=== PATIENT | female | born 1960 | race Caucasian/White ===

== ENCOUNTER 2016-06-04 10:21 | Day surgery (SDC) | payer MEDICAID ==
[2016-06-04] MEDS ORDERED: LACTATED RINGERS 1,000 ML IV ONE (10:48)
[2016-06-04] MEDS ORDERED: MIDAZOLAM 2 MG/2 ML VIAL IVP ONE (11:20)
[2016-06-04] MEDS ORDERED: fentaNYL 250 MCG/5 ML VIAL IVP ONE (11:20)
== END 2016-06-04 10:22 | disposition home or self-care (01) ==
PROC: 0DJD8ZZ Inspection of Lower Intestinal Tract, Via Natural or Artificial Opening Endoscopic (ICD-10-PCS; principal; 2016-06-04 11:15)
DX: R19.5 Other fecal abnormalities (principal); Q27.33 Arteriovenous malformation of digestive system vessel; Z80.3 Family history of malignant neoplasm of breast; Z83.3 Family history of diabetes mellitus
CPT/HCPCS: 45378; J3010; J7120

== ENCOUNTER 2017-05-11 08:45 | Outpatient (CLI) | payer MEDICAID ==
--- NOTE | 2017-05-12 17:30 | Mammography Report ---
DATE OF SERVICE: 05/11/2017 DIGITAL SCREENING MAMMOGRAM: 05/11/2017 CLINICAL INDICATION: A 57-year-old nulliparous patient with family history of breast cancer, for screening. COMPARISON: 01/2016, 07/2011, 06/2010, 07/2007. TECHNIQUE: Routine CC and MLO projections were obtained of the breasts. Bilateral laterally exaggerated craniocaudal views. FINDINGS: The breasts again demonstrate heterogeneously dense fibroglandular parenchyma bilaterally. Coarse and punctate, typically benign calcifications are present. No suspicious masses, clustered microcalcifications, or regions of architectural distortion are identified. IMPRESSION: BENIGN FINDINGS. RECOMMENDATION: ROUTINE ANNUAL SCREENING UNLESS OTHERWISE CLINICALLY INDICATED. BIRADS CATEGORY 2-BENIGN FINDINGS. STANDARD QUALIFYING STATEMENTS: 1. This examination was reviewed with the aid of Computer-Aided Detection (CAD). 2. A negative or benign imaging report should not delay biopsy if clinically suspicious findings are present. Consider surgical consultation if warranted. More than 5% of cancers are not identified by imaging. 3. Dense breasts may obscure an underlying neoplasm. TD: 05/12/2017 18:29
== END 2017-05-11 08:46 | disposition home or self-care (01) ==
LOC: DI.S 08:45
PROVIDERS: ATTEND Nurse Practitioner Family
DX: Z12.31 Encounter for screening mammogram for malignant neoplasm of breast (principal); Z80.3 Family history of malignant neoplasm of breast
CPT/HCPCS: 77067

== ENCOUNTER 2018-04-30 23:27 | Outpatient (CLI) | payer SELFPAY | END 2018-04-30 23:28 | disposition EMS.NT | LOC: EMS 23:27 | PROVIDERS: ATTEND Surgery | DX: R11.10 Vomiting, unspecified (principal) ==

== ENCOUNTER 2019-10-25 18:44 | Emergency (ER) | payer MEDICAID ==
[2019-10-25 19:03] VITALS: BP 126/74
--- NOTE | 2019-10-25 19:24 | ED Physician Documentation ---
PD HPI OPHTHO - Stated complaint Stated Complaint: BILAT EYE PX/PLANT - Chief complaint Chief Complaint: Heent - History obtained from History obtained from: Patient - History of Present Illness Timing - onset: Enter time (16:30) Timing - details: Abrupt onset Pain level max: 10 Pain level now: 3 Location: Both Quality / character: Burning Associated symptoms: Redness Contributing factors: Other (exposure to toxic plant (see below)) - Additional information Additional information: patient was gardening this afternoon which included cutting a euphorbia plant; patient noted the sap coming from this plant had gotten on her clothing and hands. She finished gardening approximately 4:30 PM. At approximately that time, she believes the sap got from her hands into both eyes, and by 5:30 PM, she had severe bilateral eye pain and visual changes in both eyes (blurry, then "blindness" (per patient)). While awaiting ED evaluation, her vision has returned to baseline and the pain has attenuated, now has mild bilateral eye burning. She says she flushed the eyes with water twice BREAKER OFF Review of Systems Eyes: reports: Loss of vision, Irritation. denies: Photophobia, Discharge GI: denies: Nausea, Vomiting Skin: denies: Rash PD PAST MEDICAL HISTORY - Past Medical History Cardiovascular: None Respiratory: None Endocrine/Autoimmune: None HEENT: None Psych: None Musculoskeletal: Other Derm: None - Past Surgical History Past Surgical History: Yes Ortho: Carpal Tunnel surgery HEENT: Tonsil/Adenoidectomy - Allergies Allergies/Adverse Reactions: Allergies Allergy/AdvReac Type Severity Reaction Status Date / Time No Known Drug Allergies Allergy Verified 05/27/15 22:06 - Social History Does the pt smoke?: No Smoking Status: Never smoker Does the pt have substance abuse?: No PD ED PE NORMAL - Vitals Vital signs reviewed: Yes - General General: Alert and oriented X 3, No acute distress, Well developed/nourished - HEENT HEENT: PERRL, EOMI PD ED PE EXPANDED - Eyes Eyes: PERRL, Normal accommodation, EOMI, Injected conj/sclera (mild bilateral injection of conjunctiva), Normal corneas, Other (left eye pH = 7.0 (using pH paper; left eye not tested, as both eyes were exposed to same substance and symptoms are equal (L=R))). No: Corneal abrasion, Fluorescein uptake Results - Vitals Vitals: Vital Signs - 24 hr 10/25/19 19:00 Temperature 36.4 C L Heart Rate 62 Respiratory 18 Rate Blood Pressure 126/74 O2 Saturation 99 Oxygen O2 Source Room air PD MEDICAL DECISION MAKING - ED course Complexity details: considered differential, d/w patient ED course: neutral pH of tears left eye. both eyes instilled with proparacaine (after pH testing) and fluorescein instilled bilaterally, no corneal uptake in either eye (using bedside wood's lamp). Offered analgesia (PO), but declines, will take ibuprofen or tylenol when she gets home. Departure - Departure Disposition: 01 Home, Self Care Clinical Impression: Chemical exposure of eye Condition: Good Instructions: ED Chemical Conjunctivitis Discharge Date/Time: 10/25/19 20:12
[2019-10-25] MEDS ORDERED: PROPARACAINE 0.5% OPHTH DROPS 15 ML EACHEYE STA (19:40)
== END 2019-10-25 20:12 | disposition home or self-care (01) ==
LOC: ED 18:44
DX: Z77.098 Contact with and (suspected) exposure to other hazardous, chiefly nonmedicinal, chemicals (principal)
CPT/HCPCS: 99282; 99283; J3490

== ENCOUNTER 2020-07-11 08:00 | Outpatient (CLI) | payer MEDICAID ==
--- NOTE | 2020-07-11 21:49 | XRAY Report ---
PROCEDURE: Chest 2 View X-Ray INDICATIONS: PAIN PROVOKED BY BREATHING TECHNIQUE: 2 view(s) of the chest. COMPARISON: None. FINDINGS: Surgical changes and devices: None. Lungs and pleura: No pleural effusions or pneumothorax. Lungs are clear. Question 1 cm pulmonary n odule seen anteriorly on the lateral view. This is not definite. Mediastinum: Mediastinal contours are normal. Heart size is normal. Bones and chest wall: No suspicious bony abnormalities. Soft tissues appear unremarkable. IMPRESSION: 1. No evidence of acute pulmonary process. 2. Question 1 cm pulmonary nodule seen on lateral view. Comment: Recommend noncontrast chest CT to evaluate possible presence or absence of a centimeter pulm onary nodule. Reviewed by: Donaldo Alcocer MD on 07/11/2020 9:48 PM PDT Approved by: Donaldo Alcocer MD on 07/11/2020 9:48 PM PDT Station ID: [id number]
== END 2020-07-11 23:59 | disposition home or self-care (01) ==
LOC: DI.S 08:00
PROVIDERS: ATTEND Physician Assistant Medical
DX: R07.1 Chest pain on breathing (principal)

== ENCOUNTER 2020-07-17 08:12 | Outpatient (CLI) | payer MEDICAID ==
--- NOTE | 2020-07-17 09:11 | CT Report ---
PROCEDURE: CHEST WO INDICATIONS: PULMONARY NODULE TECHNIQUE: Noncontrast 5 mm thick sections acquired from the pulmonary apices to the posterior costophrenic angl es. 7 mm thick coronal and sagittal MIP reformats were then acquired. For radiation dose reduction, the following was used: automated exposure control, adjustment of mA and/or kV according to patient size. COMPARISON: X-ray, two-view, 07/11/2020. FINDINGS: Image quality: Excellent. Lungs and pleura: A 7 mm thick related nodule is seen in the posterior segment of the right upper lo be (series 4 image 119). There is a 6 mm thick related nodule in the left lower lobe along the major fissure (series 4 image 178). No acute air space opacities. No pleural effusions or pneumothorax. Central and peripheral airways are patent and normal in caliber. Mediastinum: Heart size is normal. No pericardial effusion. No mediastinal adenopathy by size crit eria. Thoracic aorta and central pulmonary arteries are normal in size. Esophagus is normal in nirmal jesika. No hiatal hernia. Bones and chest wall: No suspicious bony lesions. No vertebral body compression fractures. No axil ike or supraclavicular adenopathy by size criteria. The thyroid is normal in size. Abdomen: Visualized upper abdominal solid organs and bowel loops appear normal in the absence of con trast. IMPRESSION: 1. A couple of 6-7 mm spiculated nodules, one in the posterior segment of the right upper lobe and on e in the left lower lobe. Differential diagnoses include infection, inflammatory nodules and neoplasm . A short-term follow-up CT is recommended 3 months. Alternatively, PET/CT may be considered. 2. No mediastinal lymphadenopathy. Reviewed by: Pablo Gil MD on 07/17/2020 8:09 AM [facility] Approved by: Pablo Gil MD on 07/17/2020 8:09 AM [facility] Station ID: [id number]
== END 2020-07-17 08:13 | disposition home or self-care (01) ==
LOC: DI 08:12
PROVIDERS: ATTEND Physician Assistant Medical
DX: R91.8 Other nonspecific abnormal finding of lung field (principal)

== ENCOUNTER 2020-08-19 08:00 | Outpatient (CLI) | payer MEDICAID ==
[2020-08-20 21:27] LABS: CHLAMYDIA TRACHOMATIS DNA NEGATIVE (NEGATIVE); NEISSERIA GONORRHOEAE DNA NEGATIVE (NEGATIVE); TRICHOMONAS VAGINALIS DNA NEGATIVE (NEGATIVE)
== END 2020-08-19 23:59 | disposition home or self-care (01) ==
LOC: LAB.R 08:00
PROVIDERS: ATTEND Obstetrics & Gynecology
DX: Z11.3 Encounter for screening for infections with a predominantly sexual mode of transmission (principal)
CPT/HCPCS: 87491; 87591; 87661

== ENCOUNTER 2020-10-07 09:12 | Outpatient (CLI) | payer MEDICAID ==
[2020-10-07 14:45] LABS: EOSINOPHILS # (AUTO) 0.1 10^3/uL (0.0-0.7); EOSINOPHILS % (AUTO) 2.7 %; HCT - HEMATOCRIT 41.9 % (37.0-47.0); HGB - HEMOGLOBIN 13.3 g/dL (12.0-16.0); LYMPHOCYTES # (AUTO) 1.6 10^3/uL (1.5-3.5); LYMPHOCYTES % (AUTO) 38.9 %; MEAN CORPUSCULAR HEMOGLOBIN 29.9 pg (27.0-31.0); MEAN CORPUSCULAR HGB CONC 31.7 g/dL (32.0-36.0); MEAN CORPUSCULAR VOLUME 94.2 fL (81.0-99.0); MEAN PLATELET VOLUME 12.5 fL (7.9-10.8); MONOCYTES # (AUTO) 0.3 10^3/uL (0.0-1.0); MONOCYTES % (AUTO) 7.6 %; NEUTROPHILS % (AUTO) 49.6 %; PLT - PLATELET COUNT 183 10^3/uL (130-450); RED BLOOD COUNT 4.45 10^6/uL (4.20-5.40); RED CELL DISTRIBUTION WIDTH 12.9 % (12.0-15.0); WHITE BLOOD COUNT 4.1 x10^3/uL (4.8-10.8)
[2020-10-07 15:34] LABS: ALBUMIN 4.3 g/dL (3.2-5.5); ALBUMIN/GLOBULIN RATIO 1.4 (1.0-2.2); BILIRUBIN,TOTAL 0.8 mg/dL (0.2-1.0); CALCIUM 9.6 mg/dL (8.5-10.3); CREATININE 0.8 mg/dL (0.4-1.0); POTASSIUM 4.2 mmol/L (3.5-5.0); TOTAL PROTEIN 7.4 g/dL (6.7-8.2)
== END 2020-10-07 09:13 | disposition home or self-care (01) ==
LOC: LAB.S 09:12
PROVIDERS: ATTEND Obstetrics & Gynecology
DX: R91.8 Other nonspecific abnormal finding of lung field (principal); Z13.21 Encounter for screening for nutritional disorder
CPT/HCPCS: 36415; 80053; 82306; 85025

== ENCOUNTER 2021-03-16 02:36 | Outpatient (CLI) | payer MEDICAID | END 2021-03-16 02:37 | disposition critical access hospital (66) | LOC: EMS 02:36 | DX: R55 Syncope and collapse (principal); R11.10 Vomiting, unspecified | CPT/HCPCS: A0425; A0429; A0999 ==

== ENCOUNTER 2021-03-16 03:07 | Emergency (ER) | payer MEDICAID ==
[2021-03-16 03:50] VITALS: BP 110/64
--- NOTE | 2021-03-16 03:51 | ED Physician Documentation ---
History of Present Illness - Stated complaint Stated Complaint: SYNCOPE, HBD - Chief complaint Chief Complaint: General - History obtained from History obtained from: Patient, EMS - History of Present Illness Timing: Today - Additonal information Additional information: 61-year-old female who drinks infrequently had a lot of beer to drink tonight and she had passed out, vomited and was unarousable. 911 was called. In route to the hospital the patient was incoherent did not know where she was. She has been in the emergency department now for about 30 minutes and is wanting to go home. She indicates that she believes she has just had too much to drink. She has a friend who lives in [place] who could pick her up and take her home. The patient states that she has not been ill recently she has not had diarrhea or vomiting with the exception of the vomiting this evening. Review of Systems Constitutional: denies: Fever Eyes: denies: Decreased vision Ears: denies: Ear pain Nose: denies: Congestion Throat: denies: Sore throat Cardiac: denies: Chest pain / pressure Respiratory: denies: Dyspnea, Cough GI: reports: Nausea, Vomiting. denies: Abdominal Pain, Diarrhea : denies: Dysuria, Frequency Skin: denies: Rash Musculoskeletal: denies: Neck pain, Back pain, Extremity pain Neurologic: reports: Near syncope, Confused, Altered mental status. denies: Generalized weakness, Focal weakness, Numbness PD PAST MEDICAL HISTORY - Past Medical History Cardiovascular: None Respiratory: None Neuro: None Endocrine/Autoimmune: None GI: None RN RENAL: None : None HEENT: None Psych: None Musculoskeletal: Other Derm: None - Past Surgical History Past Surgical History: Yes Ortho: Carpal Tunnel surgery HEENT: Tonsil/Adenoidectomy - Allergies Allergies/Adverse Reactions: Allergies Allergy/AdvReac Type Severity Reaction Status Date / Time No Known Drug Allergies Allergy Verified 05/27/15 22:06 - Social History Does the pt smoke?: No Smoking Status: Never smoker Does the pt drink ETOH?: Yes Does the pt have substance abuse?: No - Immunizations Immunizations are current?: No Immunizations: TDAP >10years/unknown - POLST Patient has POLST: No PD ED PE NORMAL - Vitals Vital signs reviewed: Yes (Hypertensive) - General General: Alert and oriented X 3, No acute distress, Well developed/nourished, Other (Appears mildly anxious.) - HEENT HEENT: Atraumatic, PERRL, EOMI - Neck Neck: Supple, no meningeal sign, No bony TTP - Cardiac Cardiac: RRR, No murmur - Respiratory Respiratory: No respiratory distress, Clear bilaterally - Abdomen Abdomen: Normal bowel sounds, Soft, Non tender, Non distended, No organomegaly - Back Back: No CVA TTP, No spinal TTP - Derm Derm: Normal color, Warm and dry, No rash - Extremities Extremities: No deformity, No edema - Neuro Neuro: Alert and oriented X 3, 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, No motor deficit, No sensory deficit, Normal speech Eye Opening: Spontaneous Motor: Obeys Commands Verbal: Oriented GCS Score: 15 - Psych Psych: Normal mood, Normal affect Results - Vitals Vitals: Vital Signs - 24 hr 03/16/21 03/16/21 03/16/21 03:16 03:48 04:53 Temperature 35.9 C L Heart Rate 67 58 L 58 L Respiratory 23 13 13 Rate Blood Pressure 145/96 H 110/64 110/64 O2 Saturation 98 100 100 Oxygen O2 Source Room air - Labs Labs: Laboratory Tests 03/16/21 03/16/21 04:05 04:05 WBC 5.2 RBC 4.36 Hgb 13.3 Hct 39.2 MCV 89.9 MCH 30.5 MCHC 33.9 RDW 12.1 Plt Count 175 MPV 10.6 Neut # (Auto) 3.1 Lymph # (Auto) 1.5 Waller # (Auto) 0.4 Eos # (Auto) 0.1 Baso # (Auto) 0.1 Absolute Nucleated RBC 0.00 Nucleated RBC % 0.0 Sodium 141 Potassium 3.5 Chloride 104 Carbon Dioxide 23 Anion Gap 14.0 H BUN 15 Creatinine 0.6 Estimated GFR (MDRD) 102 Glucose 105 H Calcium 9.1 Total Bilirubin 0.8 AST 21 ALT 19 Alkaline Phosphatase 63 Total Protein 7.4 Albumin 4.1 Globulin 3.3 Albumin/Globulin Ratio 1.2 Lipase 69 H Ethyl Alcohol 160.9 PD MEDICAL DECISION MAKING - ED course Complexity details: considered differential, d/w patient ED course: 61-year-old female intoxicated presents to the emergency department confused and she has improvement in her level of confusion and wants to go home. She has a friend who lives nearby and could give her a ride down to [place]. The patient indicates that she would then be at home alone. I have asked the patient to stay in the emergency department for further evaluation including a blood draw of her blood alcohol level. I have indicated that if her blood alcohol is over 250 we will need to keep her here for a period of time. Departure - Departure Disposition: Home, Self Care Clinical Impression: Alcohol intoxication Qualifiers: Complication of substance-induced condition: with delirium Qualified Code(s): F10.921 - Alcohol use, unspecified with intoxication delirium Condition: Stable Instructions: ED Alcohol Intoxication Follow-Up: Mike Navarrete MD [Primary Care Provider] - Discharge Date/Time: 03/16/21 04:56
[2021-03-16 04:11] LABS: BASOPHILS # (AUTO) 0.1 10^3/uL (0.0-0.1); BASOPHILS % (AUTO) 1.2 %; EOSINOPHILS # (AUTO) 0.1 10^3/uL (0.0-0.7); EOSINOPHILS % (AUTO) 1.9 %; HCT - HEMATOCRIT 39.2 % (37.0-47.0); HGB - HEMOGLOBIN 13.3 g/dL (12.0-16.0); LYMPHOCYTES # (AUTO) 1.5 10^3/uL (1.5-3.5); LYMPHOCYTES % (AUTO) 29.8 %; MEAN CORPUSCULAR HEMOGLOBIN 30.5 pg (27.0-31.0); MEAN CORPUSCULAR HGB CONC 33.9 g/dL (32.0-36.0); MEAN CORPUSCULAR VOLUME 89.9 fL (81.0-99.0); MEAN PLATELET VOLUME 10.6 fL (7.9-10.8); MONOCYTES # (AUTO) 0.4 10^3/uL (0.0-1.0); MONOCYTES % (AUTO) 7.4 %; NEUTROPHILS # (AUTO) 3.1 10^3/uL (1.5-6.6); NEUTROPHILS % (AUTO) 59.5 %; PLT - PLATELET COUNT 175 10^3/uL (130-450); RED BLOOD COUNT 4.36 10^6/uL (4.20-5.40); RED CELL DISTRIBUTION WIDTH 12.1 % (12.0-15.0); WHITE BLOOD COUNT 5.2 x10^3/uL (4.8-10.8)
[2021-03-16 04:23] LABS: ALBUMIN 4.1 g/dL (3.2-5.5); ALBUMIN/GLOBULIN RATIO 1.2 (1.0-2.2); BILIRUBIN,TOTAL 0.8 mg/dL (0.2-1.0); CALCIUM 9.1 mg/dL (8.5-10.3); CREATININE 0.6 mg/dL (0.4-1.0); ETOH - ETHANOL 160.9 mg/dL; POTASSIUM 3.5 mmol/L (3.5-5.0); TOTAL PROTEIN 7.4 g/dL (6.7-8.2)
== END 2021-03-16 04:56 | disposition home or self-care (01) ==
LOC: EDUNIT# → SUPCPDRO 03:07 → ED 03:07
DX: F10.921 Alcohol use, unspecified with intoxication delirium (principal)
CPT/HCPCS: 36415; 80053; 80320; 83690; 85025; 99283

== ENCOUNTER 2021-04-26 10:51 | Outpatient (CLI) | payer MEDICAID ==
--- NOTE | 2021-04-26 12:58 | CT Report ---
PROCEDURE: CHEST WO INDICATIONS: PULMONARY NODULE TECHNIQUE: Noncontrast 1mm axial images were acquired from the pulmonary apices to the posterior costophrenic an gles. Axial 5 mm soft tissue kernel reconstructions were performed as well as 8 mm axial MIP and cor onal and sagittal 5 mm reformations. For radiation dose reduction, the following was used: automate d exposure control, adjustment of mA and/or kV according to patient size. COMPARISON: 07/17/2020 FINDINGS: Image quality: Excellent. Lungs and pleura: No acute air space opacities. No pleural effusions or pneumothorax. Central and peripheral airways are patent and normal in caliber. There is been interval increase in size of spic ulated solid nodule within the right upper lobe (series 4; image 101). This measures 8 x 7 mm on toda y's examination where it previously measured 6 x 6 mm upon my remeasurement. Additional spiculated no dule adjacent to the left major fissure within the left lower lobe is also increased in size from phillip or examination now measuring 12 x 6 mm (4; 166) compared to 8 x 6 mm upon my repeat measurement. No n ew suspicious nodules identified. Mediastinum: Heart size is normal. No pericardial effusion. No mediastinal adenopathy by size crit eria. Thoracic aorta and central pulmonary arteries are normal in size. Esophagus is normal in nirmal jesika. No hiatal hernia. Bones and chest wall: No suspicious bony lesions. No vertebral body compression fractures. No axil ike or supraclavicular adenopathy by size criteria. The thyroid is normal in size and there are no incidental findings. Abdomen: Visualized upper abdominal solid organs and bowel loops appear normal in the absence of con trast. IMPRESSION: Slight interval increase in size of spiculated solid nodules within the right upper and left lower lo bes from comparison examination. This is concerning for malignancy. Recommend confirmation with PET/C T versus tissue sampling. Reviewed by: Onofre Tay DO on 04/26/2021 11:57 AM [facility] Approved by: Onofre Tay DO on 04/26/2021 11:57 AM [facility] Station ID: [id number]
== END 2021-04-26 10:52 | disposition home or self-care (01) ==
LOC: DI 10:51
PROVIDERS: ATTEND Internal Medicine
DX: R91.8 Other nonspecific abnormal finding of lung field (principal)

== ENCOUNTER 2021-05-01 08:00 | Outpatient (CLI) | payer MEDICAID ==
--- NOTE | 2021-05-01 17:00 | XRAY Report ---
PROCEDURE: Lumbar Spine 2 View INDICATIONS: FALL ON/FROM OTHER STAIRS AND STEPS; CONTUSION OF LOWER BACK/PELV TECHNIQUE: 2 views of the lumbar spine were acquired. COMPARISON: None. FINDINGS: Bones: 5 [id number] vertebrae are present. There is normal bony alignment. No vertebral body compression fractures. No suspicious bony lesions. Soft tissues: Overlying bowel gas pattern is normal. No suspicious soft tissue calcifications. IMPRESSION: No acute fracture. No osseous lesion. If symptoms and/or clinical suspicion for patholog y continue, further assessment with repeat plain films, or advanced imaging (e.g., CT, MRI, or bone s can) is recommended for further assessment. Reviewed by: Dixie Bass MD on 05/01/2021 4:59 PM PST Approved by: Dixie Bass MD on 05/01/2021 4:59 PM PST Station ID: [id number]
== END 2021-05-01 23:59 ==
LOC: DI.S 08:00
PROVIDERS: ATTEND Registered Nurse
DX: S30.0XXA Contusion of lower back and pelvis, initial encounter (principal)

== ENCOUNTER 2021-05-26 08:00 | Outpatient (CLI) | payer MEDICAID, OTHER ==
--- NOTE | 2021-05-27 10:14 | XRAY Report ---
PROCEDURE: Thoracic Spine 2 View INDICATIONS: CONTUSION OF BACK WALL OF THORAX TECHNIQUE: 3 views of the thoracic spine were acquired. COMPARISON: None. FINDINGS: Bones: No fractures or dislocations. No suspicious bony lesions. Very mild degenerative endplate ch anges are seen in mid to lower thoracic spine. 12 pairs of ribs are noted, and appear intact where v isualized. Soft tissues: No paravertebral stripe thickening. IMPRESSION: Very mild degenerative disc disease in mid to lower thoracic spine. No acute compression fracture or spondylolisthesis. Reviewed by: Les Blake MD on 05/27/2021 10:13 AM [facility] Approved by: Les Blake MD on 05/27/2021 10:13 AM [facility] Station ID: [id number]
--- NOTE | 2021-05-27 12:41 | XRAY Report ---
PROCEDURE: Cervical Spine 2 View INDICATIONS: CONTUSION OF NECK TECHNIQUE: 4 view(s) of the cervical spine were acquired. COMPARISON: None. FINDINGS: Bones: No fractures or dislocations to the T2 level. The lateral masses of C1 appear intact on the odontoid view. Mild disc height loss with endplate osteophytosis at C5-6. Minimal grade 1 anterolisth esis of C7-T1. Soft tissues: No prevertebral soft tissue swelling. IMPRESSION: No acute osseous anomaly. Reviewed by: Efrem Abdul MD on 05/27/2021 12:[address] [facility] Approved by: Efrem Abdul MD on 05/27/2021 12:[address] [facility] Station ID: [id number]
--- NOTE | 2021-05-27 13:00 | XRAY Report ---
PROCEDURE: Elbow 3 View LT INDICATIONS: LEFT ELBOW PAIN TECHNIQUE: 3 views of the elbow were acquired. COMPARISON: None FINDINGS: Bones: No fractures or dislocations. No suspicious bony lesions. Soft tissues: No elbow joint effusion. No suspicious soft tissue calcifications. IMPRESSION: No acute fracture. No osseous lesion. If symptoms and/or clinical suspicion for pathology continue, f urther assessment with repeat plain films, or advanced imaging (e.g., CT, MRI, or bone scan) is recom mended for further assessment. Reviewed by: Dixie Bass MD on 05/27/2021 12:58 PM PST Approved by: Dixie Bass MD on 05/27/2021 12:58 PM PST Station ID: [id number]
== END 2021-05-26 23:59 | disposition home or self-care (01) ==
LOC: DI.S 08:00
PROVIDERS: ATTEND Physician Assistant Medical
DX: S10.93XD Contusion of unspecified part of neck, subsequent encounter (principal); M25.522 Pain in left elbow; M51.34 Other intervertebral disc degeneration, thoracic region

== ENCOUNTER 2021-10-01 09:03 | Outpatient (CLI) | payer MEDICAID ==
--- NOTE | 2021-10-02 08:41 | CT Report ---
PROCEDURE: CHEST WO INDICATIONS: LUNG NODULE TECHNIQUE: Noncontrast 1mm axial images were acquired from the pulmonary apices to the posterior costophrenic an gles. Axial 5 mm soft tissue kernel reconstructions were performed as well as 8 mm axial MIP and cor onal and sagittal 5 mm reformations. For radiation dose reduction, the following was used: automate d exposure control, adjustment of mA and/or kV according to patient size. COMPARISON: 04/26/2021 FINDINGS: Image quality: Excellent. Lungs and pleura: Previously noted pulmonary nodules are as follows: Nodule 1: A spiculated nodule in the posterior right upper lobe is unchanged in size. On current imag e 113/4 it measures 8 mm. Nodule 2: Interval left lower lobectomy, for a previous 12 x 6 mm left lower lobe pulmonary nodule. There is a moderately large left pleural effusion. No new or increasing pulmonary nodules. Mediastinum: Heart size is normal. No pericardial effusion. No mediastinal adenopathy by size crit eria. Thoracic aorta and central pulmonary arteries are normal in size. Esophagus is normal in nirmal jesika. No hiatal hernia. Bones and chest wall: No suspicious bony lesions. No vertebral body compression fractures. No axil ike or supraclavicular adenopathy by size criteria. Thyroid is grossly unremarkable as visualized. Abdomen: Visualized upper abdominal solid organs and bowel loops appear normal in the absence of con trast. IMPRESSION: 1. Interval left lower lobectomy. There is now a moderately large left pleural effusion. 2. No significant change in size or appearance of a spiculated 8mm right upper lobe pulmonary nodule. The appearance is suspicious for a bronchogenic carcinoma. Comment: Consider PET/CT for further evaluation of the right upper lobe pulmonary nodule. CLINICAL RECOMMENDATION STATEMENTS: In patients <35 years with an ITN detected on CT, MRI, or extrathyroidal ultrasound, the Committee re commends further evaluation with dedicated thyroid ultrasound if the nodule is "e1 cm and has no susp icious imaging features, and if the patient has normal life expectancy. In patients "e35 years with an ITN detected on CT, MRI, or extrathyroidal ultrasound, the Committee r ecommends further evaluation with dedicated thyroid ultrasound if the nodule is "e1.5 cm and has no s uspicious imaging features, and if the patient has normal life expectancy. (ACR, 2014) Reviewed by: Donaldo Alcocer MD on 10/02/2021 8:39 AM PDT Approved by: Donaldo Alcocer MD on 10/02/2021 8:39 AM PDT Station ID: [id number]
== END 2021-10-01 09:04 | disposition home or self-care (01) ==
LOC: DI 09:03
PROVIDERS: ATTEND Surgery
DX: R91.1 Solitary pulmonary nodule (principal); J90 Pleural effusion, not elsewhere classified

== ENCOUNTER 2022-02-04 08:00 | Outpatient (CLI) | payer MEDICAID ==
--- NOTE | 2022-02-04 16:04 | XRAY Report ---
PROCEDURE: Abdomen 2 View X-Ray INDICATIONS: 5 days post op for upper right lobectomy for lung CA. now having acute abdominal pain TECHNIQUE: 2 views of the abdomen were acquired. COMPARISON: None FINDINGS: Surgical changes and devices: None. Bowel: No pneumoperitoneum. No pathologically dilated gas-filled loops of small bowel visualized. G aseous distention of the colon is present to the level of the sigmoid colon. A few air-fluid levels p resent on the upright view. Soft tissues:No suspicious abdominal calcifications. Bones: No suspicious bony abnormalities. IMPRESSION: 1. No pathologically dilated gas-filled loops of small bowel visualized. 2. There is gaseous distention of the colon and a few air-fluid levels are present. These are nonspec ific findings. Correlation for a colitis may be helpful. Reviewed by: George Lambert MD on 02/04/2022 4:02 PM PDT Approved by: George Lambert MD on 02/04/2022 4:02 PM PDT Station ID: [id number]
== END 2022-02-04 23:59 | disposition home or self-care (01) ==
LOC: DI.S 08:00
PROVIDERS: ATTEND Physician Assistant Medical
DX: R10.9 Unspecified abdominal pain (principal)

== ENCOUNTER 2022-03-25 08:49 | Outpatient (CLI) | payer MEDICAID ==
--- NOTE | 2022-03-25 09:17 | XRAY Report ---
PROCEDURE: Chest 2 View X-Ray INDICATIONS: CHEST PX TECHNIQUE: 2 views of the chest were acquired. COMPARISON: 07/11/2020 FINDINGS: Surgical changes and devices: Change sutures in the right upper lobe consistent with prior lobectomy. Lungs and pleura: No pleural effusions or pneumothorax. Lungs are clear. Mediastinum: Mediastinal contours are normal. Heart size is normal. Bones and chest wall: No suspicious bony abnormalities. Soft tissues appear unremarkable. IMPRESSION: No acute cardiopulmonary abnormality. Reviewed by: Dawood Gonzalez on 03/25/2022 9:15 AM [facility] Approved by: Dawood Gonzalez on 03/25/2022 9:15 AM [facility] Station ID: [id number]
== END 2022-03-25 08:50 | disposition home or self-care (01) ==
LOC: DI 08:49
PROVIDERS: ATTEND Nurse Practitioner Adult Health
DX: R07.81 Pleurodynia (principal); R05.9 Cough, unspecified

== ENCOUNTER 2022-12-11 22:58 | Emergency (ER) | payer MEDICAID ==
[2022-12-11] MEDS ORDERED: ACETAMINOPHEN 325 MG TABLET PO STA (23:15)
[2022-12-11] MEDS ORDERED: KETOROLAC 30 MG/ML VIAL IM STA (23:23)
[2022-12-11 23:25] VITALS: O2SAT 97
[2022-12-12] MEDS ORDERED: ONDANSETRON ODT 4 MG TABLET TL STA (00:05)
[2022-12-12] MEDS ORDERED: SODIUM CHLORIDE 0.9% 1,000 ML IV STA (00:05)
[2022-12-12] MEDS ORDERED: MORPHINE 10 MG/ML VIAL IVP STA (00:05)
[2022-12-12 00:21] LABS: BASOPHILS % (AUTO) 0.8 %; EOSINOPHILS % (AUTO) 0.4 %; HCT - HEMATOCRIT 38.3 % (37.0-47.0); HGB - HEMOGLOBIN 12.9 g/dL (12.0-16.0); LYMPHOCYTES # (AUTO) 0.5 10^3/uL (1.5-3.5); LYMPHOCYTES % (AUTO) 10.5 %; MEAN CORPUSCULAR HEMOGLOBIN 29.8 pg (27.0-31.0); MEAN CORPUSCULAR HGB CONC 33.7 g/dL (32.0-36.0); MEAN CORPUSCULAR VOLUME 88.5 fL (81.0-99.0); MEAN PLATELET VOLUME 11.4 fL (7.9-10.8); MONOCYTES # (AUTO) 0.7 10^3/uL (0.0-1.0); MONOCYTES % (AUTO) 13.4 %; NEUTROPHILS # (AUTO) 3.7 10^3/uL (1.5-6.6); NEUTROPHILS % (AUTO) 74.7 %; PLT - PLATELET COUNT 133 10^3/uL (130-450); RED BLOOD COUNT 4.33 10^6/uL (4.20-5.40); RED CELL DISTRIBUTION WIDTH 12.4 % (12.0-15.0); WHITE BLOOD COUNT 4.9 x10^3/uL (4.8-10.8)
[2022-12-12 00:32] LABS: ALBUMIN 4.3 g/dL (3.2-5.5)
[2022-12-12 00:33] LABS: ALBUMIN/GLOBULIN RATIO 1.3 (1.0-2.2); BILIRUBIN,TOTAL 0.4 mg/dL (0.2-1.0); CALCIUM 9.7 mg/dL (8.5-10.3); CREATININE 0.8 mg/dL (0.6-1.3); POTASSIUM 4.3 mmol/L (3.5-4.5); TOTAL PROTEIN 7.5 g/dL (6.4-8.9)
--- NOTE | 2022-12-12 01:15 | ED Physician Documentation ---
History of Present Illness - Stated complaint Stated Complaint: CURRY,FEVER - Chief complaint Chief Complaint: Neuro - History obtained from History obtained from: Patient, Family (child) - Additonal information Additional information: 62yF with pmh lung ca s/p lobectomy, currently only on gabapentin p/w nasal congestion and fever today with severe frontal headache. tmax 104. denies sore throat, soa, cp, n/v/d abd pain. PD PAST MEDICAL HISTORY - Past Medical History Cardiovascular: None Respiratory: None Neuro: None Endocrine/Autoimmune: None GI: None MANAGER SYSTEMS: None : None HEENT: None Psych: None Musculoskeletal: Other Derm: None - Past Surgical History Past Surgical History: Yes Ortho: Carpal Tunnel surgery HEENT: Tonsil/Adenoidectomy - Present Medications Home Medications: Ambulatory Orders Medication Instructions Recorded Confirmed Gabapentin [Neurontin] 300 mg PO TID 12/11/22 12/11/22 Morphine Ir [Ms Ir] 15 mg PO Q6H PRN #7 tablet 12/12/22 Nirmatrelvir/Ritonavir [Paxlovid 1 each PO BID #10 tablet 12/12/22 2X150 mg-100 mg (Eua)] - Allergies Allergies/Adverse Reactions: Allergies Allergy/AdvReac Type Severity Reaction Status Date / Time No Known Drug Allergies Allergy Verified 12/11/22 23:16 - Social History Does the pt smoke?: No Smoking Status: Never smoker Does the pt drink ETOH?: Yes Does the pt have substance abuse?: No - Immunizations Immunizations are current?: No Immunizations: TDAP >10years/unknown - POLST Patient has POLST: No PD ED PE NORMAL - Vitals Vital signs reviewed: Yes - General General: Alert and oriented X 3, No acute distress, Well developed/nourished - HEENT HEENT: Atraumatic, PERRL, EOMI, Moist mucous membranes, Pharynx benign - Neck Neck: Supple, no meningeal sign - Cardiac Cardiac: RRR - Respiratory Respiratory: No respiratory distress, Clear bilaterally - Abdomen Abdomen: Non tender, Non distended - Derm Derm: Normal color, Warm and dry - Extremities Extremities: No deformity - Neuro Neuro: Alert and oriented X 3, resolution analyst 2-12 intact, No motor deficit, No sensory deficit Results - Vitals Vitals: Vital Signs - 24 hr 12/11/22 12/12/22 23:11 01:28 Temperature 37.9 C Heart Rate 84 72 Respiratory 16 16 Rate Blood Pressure 107/74 115/66 O2 Saturation 97 97 Oxygen O2 Source Room air - Labs Labs: Laboratory Tests 12/12/22 12/12/22 12/12/22 00:17 00:17 00:27 WBC 4.9 RBC 4.33 Hgb 12.9 Hct 38.3 MCV 88.5 MCH 29.8 MCHC 33.7 RDW 12.4 Plt Count 133 MPV 11.4 H Neut # (Auto) 3.7 Lymph # (Auto) 0.5 L Norman # (Auto) 0.7 Eos # (Auto) 0.0 Baso # (Auto) 0.0 Absolute Nucleated RBC 0.00 Nucleated RBC % 0.0 Sodium 134 L Potassium 4.3 Chloride 100 L Carbon Dioxide 27 Anion Gap 7.0 BUN 7 Creatinine 0.8 Estimated GFR (MDRD) 73 L Glucose 112 H Calcium 9.7 Total Bilirubin 0.4 AST 24 ALT 17 Alkaline Phosphatase 68 Total Protein 7.5 Albumin 4.3 Globulin 3.2 Albumin/Globulin Ratio 1.3 Lipase 29 Nasal Adenovirus (PCR) NOT DETECTED Nasal B. parapertussis DNA (PCR) NOT DETECTED Nasal Coronavir 229E PCR NOT DETECTED Nasal Coronavir HKU1 PCR NOT DETECTED Nasal Coronavir NL63 PCR NOT DETECTED Nasal Coronavir OC43 PCR NOT DETECTED Nasal Enterovir/Rhinovir PCR NOT DETECTED Nasal Influenza B PCR NOT DETECTED Nasal Influenza A PCR NOT DETECTED Nasal Parainfluen 1 PCR NOT DETECTED Nasal Parainfluen 2 PCR NOT DETECTED Nasal Parainfluen 3 PCR NOT DETECTED Nasal Parainfluen 4 PCR NOT DETECTED Nasal RSV (PCR) NOT DETECTED Nasal B.pertussis DNA PCR NOT DETECTED Nasal C.pneumoniae (PCR) NOT DETECTED Gerardo Human Metapneumo PCR NOT DETECTED Nasal M.pneumoniae (PCR) NOT DETECTED Nasal SARS-CoV-2 (PCR) DETECTED A PD Medical Decision Making - ED course ED course: 62yF p/w covid-19 infection. normal vital signs and exam with exception of fever. symptoms improved with toradol and morphine and ivf. paxlovid sent to pharmacy as well as pain meds. return precautions given. f/u pcp. Departure - Departure Disposition: 01 Home, Self Care Clinical Impression: Nasal congestion, Fever Condition: Stable Instructions: ED URI Viral Prescriptions: Morphine Ir [Ms Ir] 15 mg PO Q6H PRN #7 tablet PRN Reason: Pain >8 Nirmatrelvir/Ritonavir [Paxlovid 2X150 mg-100 mg (Eua)] 1 each PO BID #10 tablet Comments: You were seen in the emergency department for headache, fever and congestion. You most likely have a virus. A nose swab was done and you can view the results on your patient health portal. [facility] [place]. Please follow-up with your primary care provider and return to the emergency department if you have any new or worsening symptoms or other concerns. Forms: PCP List Discharge Date/Time: 12/12/22 01:29
[2022-12-12 01:38] VITALS: BP 115/66
[2022-12-12 01:46] LABS: CORONAVIRUS 229E-RESP PCR NOT DETECTED; CORONAVIRUS HKU1-RESP PCR NOT DETECTED; CORONAVIRUS NL63-RESP PCR NOT DETECTED; CORONAVIRUS OC43-RESP PCR NOT DETECTED
[2022-12-12 01:47] LABS: B. PARAPERTUSSIS- RESP PCR PAN NOT DETECTED; B. PERTUSSIS- RESP PCR PANEL NOT DETECTED; C. PNEUMONIAE- RESP PCR PANEL NOT DETECTED; HUMAN METAPNEUMOVIRUS NOT DETECTED; INFLUENZA A- RESP PCR PANEL NOT DETECTED; INFLUENZA B - RESP PCR PANEL NOT DETECTED; M. PNEUMONIAE- RESP PCR PANEL NOT DETECTED; PARAINFLUENZA VIRUS 1 NOT DETECTED; PARAINFLUENZA VIRUS 2 NOT DETECTED; PARAINFLUENZA VIRUS 3 NOT DETECTED; PARAINFLUENZA VIRUS 4 NOT DETECTED; RHINOVIRUS/ENTEROVIRUS NOT DETECTED; RSV- RESP PCR PANEL NOT DETECTED; SARS-CoV-2 -RESP PCR PANEL DETECTED
== END 2022-12-12 01:29 | disposition home or self-care (01) ==
LOC: ED 22:58
DX: R50.9 Fever, unspecified (principal); R09.81 Nasal congestion; Z20.822 Contact with and (suspected) exposure to COVID-19
CPT/HCPCS: 36415; 80053; 83690; 85025; 87633; 96372; 96374; 99283; 99284; Q0162